=== PATIENT | female | born 1995 | race Caucasian/White ===

== ENCOUNTER 2019-04-02 17:36 | Inpatient (IN) | payer OTHER ==
[~2019-04-02] VITALS: Ht 154.9 cm; Wt 70.4 kg
[2019-04-02] MEDS ORDERED: OXYTOCIN 30U/ 0.9% NaCL 500ML 500 ML IV ONE (17:55)
[2019-04-02] MEDS ORDERED: OXYTOCIN 30U/ 0.9% NaCL 500ML 500 ML IV PRN (17:55)
[2019-04-02] MEDS ORDERED: RHOGAM FROM BLOOD BANK 1 NOTE EA IM/IV PRN (18:00)
[2019-04-02] MEDS ORDERED: FENTANYL PF 100 MCG/2ML IVPush PRN ×2 (18:00)
[2019-04-02] MEDS ORDERED: OXYcodone/APAP 5/325MG TABLET PO PRN (18:00)
[2019-04-02] MEDS ORDERED: METHYLERGONOVINE 0.2 MG/ML IM PRN (18:00)
[2019-04-02] MEDS ORDERED: ACETAMINOPHEN 325 MG TABLET PO PRN ×2 (18:00)
[2019-04-02] MEDS ORDERED: MISOPROSTOL 200 MCG TABLET PR PRN (18:00)
[2019-04-02] MEDS ORDERED: IBUPROFEN 600 MG TABLET PO PRN (18:00)
[2019-04-02] MEDS ORDERED: MISOPROSTOL 200 MCG TABLET VG SCH (18:00)
[2019-04-02] MEDS ORDERED: CARBOPROST TROMETHAMINE 250 MCG/ML, 1ML IM PRN (18:00)
[2019-04-02] MEDS ORDERED: ONDANSETRON 2MG/ML, 2ML IVPush PRN (18:00)
[2019-04-02] MEDS ORDERED: morphine SULFATE 10 MG/ML, 1ML IVPush PRN ×2 (18:00)
[2019-04-02] MEDS ORDERED: MISOPROSTOL 200 MCG TABLET ONE ×2 (18:17→21:31)
[2019-04-02 18:31] LABS: BASOPHILS # (AUTO) 0.08 x10^3/uL (0-0.1); BASOPHILS % (AUTO) 1 % (0-1); EOSINOPHILS # (AUTO) 0.06 x10^3/uL (0-0.4); EOSINOPHILS % (AUTO) 1 % (1-7); LYMPHOCYTES # (AUTO) 1.58 x10^3/uL (1-3.4); LYMPHOCYTES % (AUTO) 13 % (22-44); MD NO; MEAN CORPUSCULAR HGB CONC 34.5 g/dL (32.4-35.8); MEAN CORPUSCULAR VOLUME 92.7 fL (80-100); MEAN PLATELET VOLUME 7.9 fL (7.4-10.4); MONOCYTES # (AUTO) 0.88 x10^3/uL (0.2-0.8); MONOCYTES % (AUTO) 7 % (2-9); NEUTROPHILS # (AUTO) 9.59 x10^3/uL (1.8-6.8); NEUTROPHILS % (AUTO) 79 % (42-75); PLATELET COUNT 279 x10^3/uL (130-400); RED BLOOD COUNT 4.04 x10^6/uL (3.82-5.3); RED CELL DISTRIBUTION WIDTH 12.6 % (9.6-15.2)
[2019-04-02] MEDS: SODIUM CHLORIDE FLUSH 10ML SYR IVF PRN (18:39)
[2019-04-02] MEDS: MISOPROSTOL 200 MCG TABLET VG SCH (21:33)
[2019-04-03] MEDS ORDERED: MISOPROSTOL 200 MCG TABLET ONE ×3 (00:28→07:10)
[2019-04-03] MEDS: MISOPROSTOL 200 MCG TABLET VG SCH ×3 (00:31→07:25)
[2019-04-03] MEDS: SODIUM CHLORIDE FLUSH 10ML SYR IVF PRN (07:37)
[2019-04-03] MEDS ORDERED: ACETAMINOPHEN 325 MG TABLET ONE (12:37)
[2019-04-03] MEDS ORDERED: ONDANSETRON 2MG/ML, 2ML ONE (13:02)
[2019-04-03] MEDS ORDERED: OXYTOCIN 30U/ 0.9% NaCL 500ML 500 ML ONE (13:02)
[2019-04-03] MEDS ORDERED: FENTANYL PF 100 MCG/2ML ONE (13:02)
[2019-04-03] MEDS: LACTATED RINGERS 1,000 ML IV SCH ×3 (13:15→18:21)
[2019-04-03] MEDS ORDERED: morphine SULFATE 10 MG/ML, 1ML ONE (14:26)
[2019-04-03] MEDS ORDERED: FENTANYL/BUPIV./NS/PF 250 ML EPIDCONT SCH ×2 (14:34→15:18)
[2019-04-03] MEDS ORDERED: FENTANYL PF 500 MCG, BUPIVACAINE/PF 0.5%, 30ML 62.5 ML in SODIUM CHLORIDE 0.9% 177.5 ML EPIDCONT SCH (15:00)
[2019-04-03] MEDS ORDERED: LACTATED RINGERS 1,000 ML IV SCH (15:18)
[2019-04-03] MEDS ORDERED: FENTANYL/BUPIV./NS/PF 250 ML EPIDCONT ONE (15:20)
[2019-04-03] MEDS ORDERED: BUPIVACAINE 0.25% ONE (15:20)
[2019-04-03] MEDS ORDERED: NALOXONE 0.4 MG/ML, 1ML IVPush PRN (15:30)
[2019-04-03] MEDS ORDERED: EPHEDRINE 50 MG/ML, 1ML IVPush PRN (15:30)
[2019-04-03] MEDS ORDERED: LACTATED RINGERS 1,000 ML IVBOLUS PRN (15:30)
[2019-04-04] MEDS ORDERED: MISOPROSTOL 200 MCG TABLET ONE ×2 (00:22)
[2019-04-04] MEDS: MISOPROSTOL 200 MCG TABLET VG SCH (00:26)
[2019-04-04] MEDS ORDERED: OXYTOCIN 30U/ 0.9% NaCL 500ML 500 ML ONE (03:26)
[2019-04-04] MEDS ORDERED: IBUPROFEN 600 MG TABLET PO PRN (03:30)
[2019-04-04] MEDS ORDERED: OXYcodone/APAP 5/325MG TABLET PO PRN (03:30)
[2019-04-04 03:45] VITALS: BP 109/57
[2019-04-04 05:43] LABS: MEAN CORPUSCULAR HEMOGLOBIN 31.3 pg (27.0-34.8); MEAN CORPUSCULAR HGB CONC 33.6 g/dL (32.4-35.8); MEAN CORPUSCULAR VOLUME 93.2 fL (80-100); MEAN PLATELET VOLUME 7.6 fL (7.4-10.4); PLATELET COUNT 209 x10^3/uL (130-400); RED BLOOD COUNT 3.95 x10^6/uL (3.82-5.3); RED CELL DISTRIBUTION WIDTH 13.2 % (9.6-15.2)
[2019-04-04 06:01] LABS: MD YES
[2019-04-04 06:03] LABS: <PLATELET ESTIMATE> ADEQUATE; <PLT MORPHOLOGY> NORMAL PLT MORPH; <RBC MORPHOLOGY> NORMAL; BAND#(MANUAL) 0.23 x10^3/uL; BANDS%(MANUAL) 1 % (0-7); LYMPH#(MANUAL) 0.69 x10^3/uL (1-3.4); LYMPHS% (MANUAL) 3 % (22-44); MONOS#(MANUAL) 1.15 x10^3/uL (0.3-2.7); MONOS% (MANUAL) 5 % (2-9); SEG#(MANUAL) 20.84 x10^3/uL (1.8-6.8); SEGS% (MANUAL) 91 % (42-75)
[2019-04-04 09:08] VITALS: BP 101/57
[2019-04-04] MEDS ORDERED: FLUO60TA PO (09:22)
[2019-04-04] MEDS ORDERED: IBUP-1222 PO (09:23)
[2019-04-04] MEDS ORDERED: RHOGAM FROM BLOOD BANK 1 NOTE EA IM/IV ONE (09:30)
[2019-04-04] MEDS ORDERED: FLU VACC QS2019-20 36MOS UP/PF 0.5 ML IM-VACC ONE (10:00)
== END 2019-04-04 10:50 | disposition home or self-care (01) | DRG 806 ==
LOC: LDIP 17:36
PROVIDERS: ADMIT Student in an Organized Health Care Education/Training Program; ATTEND Student in an Organized Health Care Education/Training Program
PROC: 10E0XZZ Delivery of Products of Conception, External Approach (ICD-10-PCS; principal; 2019-04-04)
PROC: 3E0234Z Introduction of Serum, Toxoid and Vaccine into Muscle, Percutaneous Approach (ICD-10-PCS; 2019-04-04)
PROC: 3E0234Z Introduction of Serum, Toxoid and Vaccine into Muscle, Percutaneous Approach (ICD-10-PCS; 2019-04-04)
PROC: 0U7C7ZZ Dilation of Cervix, Via Natural or Artificial Opening (ICD-10-PCS; 2019-04-04)
PROC: 10903ZU Drainage of Amniotic Fluid, Diagnostic from Products of Conception, Percutaneous Approach (ICD-10-PCS; 2019-04-04)
PROC: 3E0P7VZ Introduction of Hormone into Female Reproductive, Via Natural or Artificial Opening (ICD-10-PCS; 2019-04-04)
DX: O35.9XX0 Maternal care for (suspected) fetal abnormality and damage, unspecified, not applicable or unspecified (principal); O36.4XX0 Maternal care for intrauterine death, not applicable or unspecified; Z37.1 Single stillbirth; O69.89X0 Labor and delivery complicated by other cord complications, not applicable or unspecified; F41.9 Anxiety disorder, unspecified; O26.892 Other specified pregnancy related conditions, second trimester; O99.344 Other mental disorders complicating childbirth; Z23 Encounter for immunization; Z67.21 Type B blood, Rh negative; Z3A.21 21 weeks gestation of pregnancy
CPT/HCPCS: 36415; 85025; 85461; 86592; 86850; 86900; 88305; 90686; G0378; J2405; J2790; J3010; J3490; J2270; J2590; J7120

== ENCOUNTER 2021-02-10 21:50 | Emergency (ER) | payer OTHER ==
[~2021-02-10] VITALS: Ht 154.9 cm; Wt 70.0 kg
[~2021-02-10 21:50] MED LIST: FLUO60TA PO; IBUP-1222 PO
[2021-02-10] MEDS ORDERED: IBUPROFEN 200 MG TABLET PO ONE (23:00)
[2021-02-10] MEDS ORDERED: DIPH,PERTUSS(ACELL),TET VAC/PF 0.5 ML IM-VACC ONE ×2 (23:30→23:37)
[2021-02-10] MEDS ORDERED: IBUPROFEN 600 MG TABLET ONE (23:35)
[2021-02-10 23:43] VITALS: BP 123/78
== END 2021-02-11 00:10 | disposition home or self-care (01) ==
LOC: ED 23:00
DX: L03.116 Cellulitis of left lower limb (principal); L01.01 Non-bullous impetigo
CPT/HCPCS: 90471; 90715